=== PATIENT | female | born 1975 | race Caucasian/White ===

== ENCOUNTER → 2017-04-07 | Outpatient (REF) | payer OTHER | LOC: M LAB REF 12:28 | PROVIDERS: ATTEND Internal Medicine | DX: D64.9 Anemia, unspecified (principal) ==

== ENCOUNTER → 2017-09-15 | Outpatient (REF) | payer OTHER ==
[2017-09-15 18:44] LABS: APPEARANCE, URINE CLEAR (CLEAR); BACTERIA, URINE AUTO 1+ (NEGATIVE); BILIRUBIN, URINE AUTO NEGATIVE (NEGATIVE); BLOOD, URINE BLOOD 1+ (NEGATIVE); COLOR, URINE STRAW (YELLOW); GLUCOSE, URINE (UA) AUTO NEGATIVE (NEGATIVE); KETONE, URINE AUTO NEGATIVE (NEGATIVE); LEUKOCYTE ESTERASE, URINE AUTO NEGATIVE (NEGATIVE); NITRITE, URINE AUTO NEGATIVE (NEGATIVE); PROTEIN, URINE AUTO NEGATIVE (NEGATIVE); RBC, URINE AUTO 1 /HPF (0-3); SPECIFIC GRAVITY URINE AUTO 1.003 (1.002-1.035); SQUAMOUS EPITHELIAL CELL UR AU 1 /HPF (0-6); UROBILINOGEN, URINE AUTO 0.2 mg/dL (0.0-2.0); WBC, URINE AUTO 0 /HPF (0-3)
== END ==
LOC: M LAB REF 16:38
DX: N39.0 Urinary tract infection, site not specified (principal)

== ENCOUNTER → 2017-10-10 | Outpatient (REF) | payer OTHER ==
[2017-10-10 20:07] LABS: IRON (FE) 56 UG/DL (50-170); PERCENT SATURATION 15.4 % (13.2-45.0); TOTAL IRON BINDING CAPACITY 364 UG/DL (250-450)
[2017-10-10 20:10] LABS: VITAMIN B12 LEVEL 506 PG/ML (247-911)
== END ==
LOC: M LAB REF 17:32
DX: D64.9 Anemia, unspecified (principal)
CPT/HCPCS: 83550

== ENCOUNTER 2018-11-23 10:37 | Day surgery (SDC) | payer OTHER ==
[~2018-11-23] VITALS: Ht 171.4 cm; Wt 121.6 kg
[~2018-11-23 10:37] MED LIST: LEXA1TAB2 PO; LIDOCAINE 1% MDV 20ML VIAL SQ PRN; LR 1,000 ML IV SCH; VALS1TAB49 PO
[2018-11-23] MEDS ORDERED: PROPOFOL 200 MG/20 ML VIAL As Ordered ONE (10:48)
[2018-11-23] MEDS ORDERED: dexameTHASONE 4 MG/ML 1ML VIAL (J1100) As Ordered ONE (10:48)
[2018-11-23] MEDS ORDERED: ONDANSETRON 4MG/2ML VIAL (J2405) As Ordered ONE (10:48)
[2018-11-23] MEDS ORDERED: LIDOCAINE 2% INJ 100 MG/5 ML SDV (FOR ANES.) As Ordered ONE (10:48)
[2018-11-23] MEDS ORDERED: MIDAZOLAM INJ 2 MG/2 ML VIAL (J2250) As Ordered ONE (10:48)
[2018-11-23] MEDS ORDERED: fentaNYL 100 MCG/2 ML INJECTION (J3010) As Ordered ONE ×2 (10:49→14:59)
[2018-11-23 11:16] LABS: URINE PREG TEST NEGATIVE (NEGATIVE)
[2018-11-23] MEDS ORDERED: ROCURONIUM BROMIDE 50 MG/5 ML VIAL As Ordered ONE (12:53)
[2018-11-23] MEDS ORDERED: SUCCINYLCHOLINE 100 MG/5 ML SYRINGE (J0330) As Ordered ONE (12:53)
[2018-11-23] MEDS ORDERED: PERCOCET 5MG/325MG TAB As Ordered ONE (14:59)
[2018-11-23] MEDS ORDERED: KETOROLAC 30 MG/ML VIAL (J1885) As Ordered ONE (15:08)
[2018-11-23] MEDS ORDERED: IBUPROFEN 600 MG TAB PO PRN (15:15)
[2018-11-23] MEDS ORDERED: ONDANSETRON 4MG/2ML VIAL (J2405) IV PRN (15:15)
[2018-11-23] MEDS ORDERED: fentaNYL 100 MCG/2 ML INJECTION (J3010) IV PRN (15:15)
[2018-11-23] MEDS ORDERED: NORCO, ANEXSIA 5/325MG TABLET (HYDROcodone/ACETAMINOPHEN) PO PRN (15:15)
[2018-11-23] MEDS ORDERED: LR 1,000 ML IV SCH ×2 (15:15)
[2018-11-23] MEDS ORDERED: KETOROLAC 30 MG/ML VIAL (J1885) IV PRN (15:15)
[2018-11-23] MEDS ORDERED: PERCOCET 5MG/325MG TAB PO PRN (15:15)
--- NOTE | 2018-11-23 15:38 | RO ---
DATE OF PROCEDURE: 11/23/2018 PREOPERATIVE DIAGNOSIS: Pain and bleeding. POSTOPERATIVE DIAGNOSIS: Pain and bleeding. OPERATIVE PROCEDURE: Dilation and curettage (D and C), hysteroscopy, NovaSure ablation. SURGEON: Amy Mckay MD CULTURE ROOM WORKER: None. ANESTHESIA: General endotracheal anesthesia. BRIEF DESCRIPTION OF PROCEDURE AND FINDINGS: Sabrina was brought to the operating room where sufficient general endotracheal anesthesia was induced and she was prepped, draped and positioned in the usual sterile fashion, the bladder emptied and the anterior aspect of the cervix grasped with single-tooth tenaculum. Cervix is moderately supported in this patient. We sounded the uterus and found an endometrial cavity length of 5. Cervical length of 4 and the total length was 9, so giving that 5 length, we subsequently had a width of 4.5, but at this point we just had a length of 5. We dilated the cervix and after allowing introduction of the hysteroscope which was used to visualize the endometrial cavity which had some overgrowth of endometrium but was otherwise normal in appearance. There were no polyps, there were no problems with the ostia which were normal in appearance and curettage was carried out. We then placed the NovaSure device and again set the length at 5 and width was measured at 4.5 and an uncomplicated NovaSure ablation was carried out. The procedure was then ended. Estimated blood loss for the procedure about 3 mL. Fluid replacement was crystalloid. Complications: None. CONDITION AND DISPOSITION: Sabrina tolerated the procedure well and was recovering in the recovery room in good condition.
[2018-11-23 16:30] VITALS: BP 156/91
== END 2018-11-23 16:35 | disposition home or self-care (01) ==
LOC: M SDC 10:37
PROVIDERS: ATTEND Obstetrics & Gynecology
DX: N93.9 Abnormal uterine and vaginal bleeding, unspecified (principal); R10.2 Pelvic and perineal pain; M41.9 Scoliosis, unspecified; F32.9 Major depressive disorder, single episode, unspecified; G43.909 Migraine, unspecified, not intractable, without status migrainosus; R06.83 Snoring; E66.9 Obesity, unspecified; Z68.41 Body mass index [BMI] 40.0-44.9, adult; Z79.899 Other long term (current) drug therapy
CPT/HCPCS: 58563; 84703; 88305; J0330; J1100; J1885; J2250; J2405; J3010